=== PATIENT | male | born 1980 | race Caucasian/White ===

== ENCOUNTER 2017-05-01 13:24 | Emergency (ER) | payer OTHER ==
[2017-05-01] MEDS ORDERED: Albuterol/Ipratropium 3.0-0.5 MG/3 ML Neb Soln NEB ONE (13:40)
[2017-05-01] MEDS ORDERED: predniSONE 20 MG Tab PO ONE (13:40)
--- NOTE | 2017-05-01 14:48 | EDM.PDOC ---
ED HPI GENERAL MEDICAL PROBLEM - General Stated Complaint: ALLERGIC REATION Time Seen by Provider: 05/01/17 14:01 Source of Information: Reports: Patient History Limitations: Reports: No Limitations, Respiratory Distress - History of Present Illness INITIAL COMMENTS - FREE TEXT/NARRATIVE: 37 y.o.w.minoo came to the ed after he ate shrimp noticing an itching rash, starting at his upper extremities spreading over his entire integument. Pt stated he felt sob which is improving since he arrived here in the ed. He felt "swelling of his throat" which was improving as well. No F/C N/V of dizziness. No other acute medical issues at this time. Onset: Today, Sudden Onset Date: 05/01/17 Onset Time: 12:00 Duration: Minutes:, Intermittent Location: Reports: Chest Quality: Reports: Other (tightness) Severity: Mild Improves with: Reports: Medication Worsens with: Reports: Rest Context: Reports: Other (ate shrimp) Associated Symptoms: Reports: Rash (generalized) - Related Data Allergies Allergy/AdvReac Type Severity Reaction Status Date / Time seasonal Allergy Rash Uncoded 05/01/17 13:55 Home Meds: Home Meds Prednisone [IJD: predniSONE] 20 mg PO WITHBREAKFAST #4 tab 05/01/17 [Rx] hydrOXYzine Pamoate [Vistaril] 50 mg PO Q6H #14 cap 05/01/17 [Rx] ED ROS GENERAL - Review of Systems Review Of Systems: See Below Constitutional: Reports: No Symptoms HEENT: Reports: No Symptoms Respiratory: Reports: Shortness of Breath Cardiovascular: Reports: No Symptoms Endocrine: Reports: No Symptoms GI/Abdominal: Reports: No Symptoms : Reports: No Symptoms Musculoskeletal: Reports: No Symptoms Skin: Reports: Pruritis, Rash Neurological: Reports: No Symptoms Psychiatric: Reports: No Symptoms Hematologic/Lymphatic: Reports: No Symptoms Immunologic: Reports: No Symptoms ED EXAM, GENERAL - Physical Exam Exam: See Below Exam Limited By: No Limitations General Appearance: Alert, WD/WN, Anxious, Mild Distress Eye Exam: Bilateral Eye: Normal Inspection Ears: Normal External Exam, Normal Canal Ear Exam: Bilateral Ear: Auricle Normal Nose: Normal Inspection Throat/Mouth: Normal Inspection, Normal Lips, Normal Teeth Head: Atraumatic, Normocephalic Neck: Normal Inspection, Supple, Non-Tender Respiratory/Chest: No Respiratory Distress, No Accessory Muscle Use, Chest Non- Tender, Wheezing (minor exp.) Cardiovascular: Normal Peripheral Pulses, Regular Rate, Rhythm, No Edema, No Gallop, No JVD, No Murmur Peripheral Pulses: 1+: Femoral (L), Femoral (R) GI/Abdominal: Normal Bowel Sounds, Soft, Non-Tender, No Organomegaly (Male) Exam: Deferred Rectal (Males) Exam: Deferred Back Exam: Normal Inspection, Full Range of Motion Extremities: Normal Inspection, Normal Range of Motion, Non-Tender, No Pedal Edema, Normal Capillary Refill Neurological: Alert, Oriented, CN II-XII Intact, Normal Cognition, Normal Gait Psychiatric: Normal Affect, Normal Mood Skin Exam: Rash (generalized urticarial rash) Course - Vital Signs Text/Narrative:: 37 y.o.w.f came to the ed after he ate shrimp noticing an itching rash, starting at his upper extremities spreading over his entire integument. Pt stated he felt sob which is improving since he arrived here in the ed. He felt "swelling of his throat" which was improving as well. No F/C N/V of dizziness. No other acute medical issues at this time. PE: Throat clear, airways open, lungs showed minor exp. wheezes, skin showed a gen urticarial rash with itching. Impression: Asthma, possible allergy to shrimp, Urticarial rash. Tx: Duoneb, Prednison, Prescription for Vistaril (for urticaria) Reexam: Improved Resp symptoms 100% better. Plan: D/C with instruction Last Recorded V/S: Last Vital Signs Temp 36.3 C 05/01/17 14:30 Pulse 92 05/01/17 14:30 Resp 20 05/01/17 14:30 BP 160/68 H 05/01/17 14:30 Pulse Ox 99 05/01/17 14:30 - Orders/Labs/Meds Meds: Medications Discontinued Medications Generic Name Dose Route Start Last Admin Trade Name Freq PRN Reason Stop Dose Admin Albuterol/Ipratropium 3 ml 05/01/17 13:40 05/01/17 13:48 Duoneb 3.0-0.5 Mg/3 Ml NEB 05/01/17 13:41 3 ml ONETIME ONE Administration Prednisone 40 mg 05/01/17 13:40 05/01/17 13:58 Prednisone PO 05/01/17 13:41 40 mg ONETIME ONE Administration Departure - Departure Time of Disposition: 14:44 Disposition: Home, Self-Care 01 Condition: Good Clinical Impression: Urticaria, Asthma, Allergy to shrimp - Discharge Information Prescriptions: hydrOXYzine Pamoate [Vistaril] 50 mg PO Q6H #14 cap Prednisone [IJD: predniSONE] 20 mg PO WITHBREAKFAST #4 tab Instructions: Food Allergy, Allergies Referrals: PCP,None [Primary Care Provider] - Forms: ED Department Discharge Additional Instructions: Please increase water intake, take the meds as recommended, please follow up, come back if your symptoms get worse acutely
[2017-05-01 16:32] VITALS: BP 160/68
== END 2017-05-01 14:55 | disposition home or self-care (01) ==
LOC: FB.ED 13:24
DX: T78.1XXA Other adverse food reactions, not elsewhere classified, initial encounter (principal); L50.9 Urticaria, unspecified; J45.909 Unspecified asthma, uncomplicated; Z91.09 Other allergy status, other than to drugs and biological substances
CPT/HCPCS: 94640; 99283; A9270; J7620